=== PATIENT | male | born 1980 | race Caucasian/White ===

== ENCOUNTER 2018-02-14 18:10 | Emergency (ER) | payer BC ==
--- NOTE | 2018-02-14 18:52 | EDM.PDOC ---
ED HPI GENERAL MEDICAL PROBLEM - General Chief Complaint: Gastrointestinal Problem Stated Complaint: BLOODY STOOLS Time Seen by Provider: 02/14/18 18:40 Source of Information: Reports: Patient History Limitations: Reports: No Limitations - History of Present Illness INITIAL COMMENTS - FREE TEXT/NARRATIVE: Arslan comes into [facility] with some painless rectal bleeding over the past 8 hours. He does much sitting with extended travel. He reports no diarrhea, constipation, bleeding diathesis, or rash. He has tried no meds. - Related Data Allergies Allergy/AdvReac Type Severity Reaction Status Date / Time No Known Allergies Allergy Verified 02/14/18 18:21 Home Meds: Home Meds NK [No Known Home Meds] 02/14/18 [History] Past Medical History Gastrointestinal History: Reports: Hemorrhoids - Infectious Disease History Infectious Disease History: Reports: Chicken Pox Social & Family History - Family History Family Medical History: Noncontributory - Tobacco Use Smoking Status *Q: Never Smoker Second Hand Smoke Exposure: No - Caffeine Use Caffeine Use: Reports: Soda - Recreational Drug Use Recreational Drug Use: No ED ROS GENERAL - Review of Systems Review Of Systems: ROS reveals no pertinent complaints other than HPI. ED EXAM, GI/ABD - Physical Exam Exam: See Below Exam Limited By: No Limitations General Appearance: Alert, WD/WN, No Apparent Distress Head: Normocephalic Neck: Normal Inspection, Supple, Non-Tender Respiratory/Chest: Lungs Clear, Normal Breath Sounds Cardiovascular: Regular Rate, Rhythm, No Murmur GI/Abdominal Exam: Normal Bowel Sounds, Soft, Non-Tender, No Organomegaly, No Distention, No Mass (Male) Exam: No Hernia, Normal Inspection, Normal Prostate Rectal (Males) Exam: Normal Rectal Tone, Prostate Normal, Hemorrhoids (solitary external hemorrhoid with small clot adherent) Back Exam: Normal Inspection Extremities: Normal Inspection Neurological: Alert, Oriented, CN II-XII Intact, Normal Cognition, Normal Gait, No Motor/Sensory Deficits Psychiatric: Normal Affect, Normal Mood Skin Exam: Warm, Dry, Intact, Normal Color, No Rash Lymphatic: No Adenopathy Course - Vital Signs Text/Narrative:: Arslan remained stable at the [facility] ED. No meds were administered. Last Recorded V/S: Last Vital Signs Temp 37.0 C 02/14/18 18:26 Pulse 78 05/01/18 18:26 Resp 16 02/14/18 18:26 BP 150/80 H 02/14/18 18:26 Pulse Ox 98 02/14/18 18:26 Departure - Departure Time of Disposition: 18:51 Disposition: Home, Self-Care 01 Condition: Good Clinical Impression: External hemorrhoid, bleeding - Discharge Information Referrals: Markie Roldan MD [Primary Care Provider] - - Problem List & Annotations (1) External hemorrhoid, bleeding SNOMED Code(s): 43125934 Code(s): K64.4 - RESIDUAL HEMORRHOIDAL SKIN TAGS Status: Acute Current Visit: Yes Annotation/Comment:: Small external hemorrhoid, managed with sitz bath, soothing hemorrhoid cremes, and observation. - Problem List Review Problem List Initiated/Reviewed/Updated: Yes - Assessment/Plan Plan: Follow up with PCP if needed.
== END 2018-02-14 18:56 | disposition home or self-care (01) ==
LOC: FB.ED 18:10
DX: K64.4 Residual hemorrhoidal skin tags (principal)
CPT/HCPCS: 99282

== ENCOUNTER 2019-10-17 17:28 | Emergency (ER) | payer BC ==
--- NOTE | 2019-10-17 17:55 | EDM.PDOC ---
ED HPI GENERAL MEDICAL PROBLEM - General Chief Complaint: Skin Complaint Stated Complaint: HEADAACHE,EAR PAIN Time Seen by Provider: 10/17/19 17:53 Source of Information: Reports: Patient History Limitations: Reports: No Limitations - History of Present Illness INITIAL COMMENTS - FREE TEXT/NARRATIVE: 39 yo complaining of a rash to tip the nose,lips and swollen glands x 2 days.No fever or febrile illness - Related Data Allergies Allergy/AdvReac Type Severity Reaction Status Date / Time amoxicillin [From Augmentin] Allergy Other Verified 10/17/19 17:44 clavulanic acid Allergy Other Verified 10/17/19 17:44 [From Augmentin] Home Meds: Home Meds Pravastatin Sodium 20 mg PO DAILY 10/17/19 [History] valACYclovir [Valtrex] 2,000 mg PO BID 1 Days #4 tablet 10/17/19 [Rx] Past Medical History Gastrointestinal History: Reports: Hemorrhoids - Infectious Disease History Infectious Disease History: Reports: Chicken Pox Social & Family History - Family History Family Medical History: Noncontributory - Tobacco Use Smoking Status *Q: Never Smoker - Caffeine Use Caffeine Use: Reports: Soda - Recreational Drug Use Recreational Drug Use: No ED ROS GENERAL - Review of Systems Review Of Systems: Comprehensive ROS is negative, except as noted in HPI. ED EXAM, SKIN/RASH Exam: See Below Exam Limited By: No Limitations General Appearance: Alert, WD/WN Ears: Normal External Exam Nose: Nasal Swelling, Other (grouped vesilces at the tip of the nose) Throat/Mouth: Other (vesicular lesions in ner lip[) Neck: Normal Inspection, Lymphadenopathy (R) Course - Vital Signs Last Recorded V/S: Last Vital Signs Temp 98.4 F 10/17/19 17:30 Pulse 104 H 10/17/19 17:30 Resp 14 10/17/19 17:30 BP 140/91 H 10/17/19 17:30 Pulse Ox 100 10/17/19 17:30 Departure - Departure Time of Disposition: 17:55 Disposition: Home, Self-Care 01 Condition: Good Clinical Impression: Herpes labialis - Discharge Information Prescriptions: valACYclovir [Valtrex] 2,000 mg PO BID 1 Days #4 tablet Instructions: Cold Sore, [id number] Referrals: Markie Roldan MD [Primary Care Provider] - Forms: ED Department Discharge Sepsis Event Note - Evaluation Sepsis Screening Result: No Definite Risk - Focused Exam Vital Signs: Vital Signs Temp Pulse Resp BP Pulse Ox 10/17/19 17:30 98.4 F 104 H 14 140/91 H 100 Date Exam was Performed: 10/17/19 Time Exam was Performed: 17:53 - Problem List & Annotations (1) Herpes labialis SNOMED Code(s): 7680242 Code(s): B00.1 - HERPESVIRAL VESICULAR DERMATITIS Status: Acute Current Visit: Yes - Problem List Review Problem List Initiated/Reviewed/Updated: Yes - Assessment/Plan Plan: Valtrex 2 g bid x 1 day
== END 2019-10-17 18:06 | disposition home or self-care (01) ==
LOC: FB.ED 17:28
DX: B00.1 Herpesviral vesicular dermatitis (principal); Z88.1 Allergy status to other antibiotic agents
CPT/HCPCS: 99282

== ENCOUNTER 2023-04-05 23:45 | Emergency (ER) | payer BC ==
[2023-04-05] MEDS ORDERED: Acetaminophen/HYDROcodone 325-5 MG Tab PO ONE (23:46)
[2023-04-06] MEDS: Ketorolac 30 MG/ML SDV IVPUSH ONE (00:09)
[2023-04-06 00:22] LABS: BILIRUBIN,URINE NEGATIVE (NEGATIVE); GLUCOSE,URINE NORMAL (NORMAL); KETONES,URINE NEGATIVE (NEGATIVE); LEUKOCYTE ESTERASE,URINE NEGATIVE (NEGATIVE); NITRITE,URINE NEGATIVE (NEGATIVE); OCCULT BLOOD,URINE NEGATIVE (NEGATIVE); PROTEIN,URINE NEGATIVE (NEGATIVE); UROBILINOGEN,URINE NORMAL (NEGATIVE)
[2023-04-06 00:24] LABS: APPEARANCE,URINE CLEAR (CLEAR); BACTERIA,URINE OCCASIONAL (NS); COLOR,URINE YELLOW (YELLOW); RBC,URINE NOT SEEN (0-5); SQUAMOUS EPITHELIAL CELLS,UR OCCASIONAL (NS,R,O); WBC,URINE 0-5 (0-5)
[2023-04-06 00:39] LABS: BASOPHILS PERCENT AUTO 0.4 % (0.3-3.8); EOSINOPHILS ABSOLUTE AUTO 0.2 x10-3/uL (0.0-0.6); EOSINOPHILS PERCENT AUTO 2.1 % (0.1-6.8); HEMATOCRIT 43.7 % (38.3-50.1); HEMOGLOBIN 14.5 g/dL (12.9-17.7); LYMPHOCYTES ABSOLUTE AUTO 4.8 x10-3/uL (0.5-4.5); LYMPHOCYTES PERCENT AUTO 43.4 % (15.8-45.3); MEAN CORPUSCULAR HEMOGLOBIN 27.5 pg (27.0-33.3); MEAN CORPUSCULAR HGB CONC 33.3 g/dL (28.7-35.3); MEAN CORPUSCULAR VOLUME 82.5 fL (80.8-98.7); MEAN PLATELET VOLUME 7.8 fL (6.7-11.0); MONOCYTES ABSOLUTE AUTO 0.7 x10-3/uL (0.0-1.2); NEUTROPHILS ABSOLUTE AUTO 5.4 x10-3/uL (1.7-6.9); NEUTROPHILS PERCENT AUTO 48.1 % (40.3-71.8); PLATELET COUNT,PLT 243 x10(3)uL (117-477); RED BLOOD CELL COUNT 5.29 x10(6)uL (3.90-5.90); RED CELL DISTRIBUTION WIDTH 13.7 % (12.4-15.0); WHITE BLOOD CELL COUNT,WBC 11.2 x10-3/uL (3.2-10.1)
[2023-04-06] MEDS: HYDROmorphone 2 MG/ML SDV IVPUSH ONE (00:49)
[2023-04-06 00:50] LABS: A/G RATIO 1.2; ALANINE AMINOTRANSFERASE,ALT 41 U/L (12-36); ALBUMIN 3.7 g/dL (3.5-5.2); ALKALINE PHOSPHATASE 96 IU/L (56-112); ASPARTATE AMNIOTRANSFERASE,AST 38 IU/L (5-25); BILIRUBIN TOTAL 0.4 mg/dL (0.1-1.3); BLOOD UREA NITROGEN,BUN 19 mg/dL (7-18); BUN/CREATININE RATIO 17.3 (9-20); CALCIUM 8.9 mg/dL (8.6-10.2); CARBON DIOXIDE,CO2 28 mmol/L (21-32); CHLORIDE,CL 105 mmol/L (100-110); CREATININE 1.1 mg/dL (0.70-1.30); ESTIMATED GFR 87 mL/min (>60); GLUCOSE RANDOM 150 mg/dL (80-116); POTASSIUM,K 3.6 mmol/L (3.5-5.3); PROTEIN TOTAL,TP 6.9 g/dL (6.0-8.0); SODIUM,NA 143 mmol/L (135-145)
[2023-04-06] MEDS: Ondansetron 4 MG/2 ML SDV IVPUSH ONE (00:51)
[2023-04-06] MEDS: Ondansetron 4 MG/2 ML SDV ONE (01:37)
== END 2023-04-06 01:54 | disposition home or self-care (01) ==
LOC: FB.ED 23:45
DX: N13.2 Hydronephrosis with renal and ureteral calculous obstruction (principal); E78.00 Pure hypercholesterolemia, unspecified; Z88.0 Allergy status to penicillin; Z79.899 Other long term (current) drug therapy
CPT/HCPCS: 36415; 74176; 80053; 81001; 85025; 86140; 87086; 96374; 96375; 99284-25; A9270-GY; J1170; J1885; J2405